=== PATIENT | male | born 2000 | race Caucasian/White ===

== ENCOUNTER 2023-11-04 15:00 | Emergency (ER) | payer SELFPAY ==
[2023-11-04 15:07] VITALS: BP 143/109; PULSE 99; TEMP 37.1; O2SAT 95; BMI 33.0
--- NOTE | 2023-11-04 15:22 | ECG_ITS ---
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
--- NOTE | 2023-11-04 15:24 | XR_ITS ---
[facility] [place] [id number] Patient Name: JANA LOVETT MRN: [id number] date: 2000 Sex: M Assigned Patient Location: ER Current Patient Location: ED.MAIN Accession/Order Number: [id number] Exam Date: 11/04/2023 15:35 Report Date: 11/04/2023 15:59 At the request of: MARCELLA MERCEDES Procedure: XR chest 1V 2 frontal AP portable upright CHEST RADIOGRAPH, 11/04/2023 3:35 PM EDT COMPARISON: None CLINICAL HISTORY: CP in the sternal area radiates posteriorly with vomiting for 2 weeks. FINDINGS: No acute cardiopulmonary disease. No pulmonary edema, pneumothorax, or pleural effusion. Normal heart size. No acute osseous abnormality. XR/XR chest 1V IMPRESSION: No acute abnormality identified. Electronically authenticated by: Judit LIU Date: 11/04/2023 15:59
--- NOTE | 2023-11-04 15:26 | ED_ITS ---
HPI - Chest Pain General Chief Complaint: Chest Pain Stated Complaint: CP W/ DEEP INSPIRATION Time Seen by Provider: 11/04/23 15:14 Source: patient Mode of arrival: walk-in Limitations: no limitations History of Present Illness HPI narrative: 23-year-old male presents to the emergency department for chest pain. It started about an hour ago when he was at work and he points to the sternal area and the corresponding area on his back. There was no injury and he states it is feeling better. He was at work when this happened and he was using a squeegee to move water. No fever or cough and he does not complain to me of shortness of breath. Related Data Allergies Allergy/AdvReac Type Severity Reaction Status Date / Time No Known Drug Allergies Allergy Verified 11/04/23 15:11 Review of Systems ROS Narrative A ten point review of systems is negative except as noted above. Exam Narrative Exam Narrative: Nurses note and vital signs reviewed and patient is not hypoxic. General: The patient appears well and in no apparent distress. Patient is resting comfortably on cart. Skin: Warm, dry, no pallor noted. There is no rash noted. Head: Normocephalic, atraumatic Eye: Normal conjunctiva, no drainage Ears, Nose, Mouth, and Throat: oral mucosa is moist. Nares patent. Cardiovascular: Regular Rate and Rhythm Respiratory: Patient is in no distress, no accessory muscle use, lungs are clear to auscultation, no wheezing, rales or rhonchi Back: non-tender GI: Soft and nontender Musculoskeletal: The patient has no evidence of calf tenderness, no pitting edema, symmetrical pulses noted bilaterally Neurological: A&O, normal speech Psychiatric: Cooperative Constitutional Vital Signs, click to edit/add: Last Vital Signs Temp 98.7 F 11/04/23 15:07 Pulse 99 H 11/04/23 15:07 Resp 18 11/04/23 15:07 BP 143/109 H 11/04/23 15:07 Pulse Ox 95 11/04/23 15:07 Course Vital Signs Vital signs: Vital Signs Temperature 98.7 F 11/04/23 15:07 Pulse Rate 99 H 11/04/23 15:07 Respiratory Rate 18 11/04/23 15:07 Blood Pressure 143/109 H 11/04/23 15:07 Pulse Oximetry 95 11/04/23 15:07 Temperature 98.7 F 11/04/23 15:07 Pulse Rate 99 H 11/04/23 15:07 Respiratory Rate 18 11/04/23 15:07 Blood Pressure 143/109 H 11/04/23 15:07 Pulse Oximetry 95 11/04/23 15:07 MDM - Chest Pain MDM Narrative Medical decision making narrative: His workup here is negative, including blood work, x-ray, and EKG. He is feeling much better and is able to be discharged home. Treatment diagnosis and follow-up were discussed with the patient. Differential Diagnosis Differential diagnosis: Likely pneumothorax, atypical chest pain, st elevation myocardial infarction, costochondritis and chest pain Lab Data Attestation: I reviewed the patient's lab results. Labs: Lab Results 11/04/23 Range/Units 15:14 WBC 14.6 H (4.0-11.0) 10^3/uL RBC 5.70 (4.70-6.10) 10^6/uL Hgb 16.0 (14.0-18.0) g/dL Hct 46.5 (42.0-54.0) % MCV 81.6 (80.0-94.0) fL MCH 28.1 (25.9-34.0) pg MCHC 34.4 (29.9-35.2) g/dL RDW 11.9 (11.0-15.0) % Plt Count 357 (150-450) 10^3/uL MPV 11.5 (9.5-13.5) fL Neut % (Auto) 67.5 (43.0-75.0) % Lymph % (Auto) 25.4 (20.5-60.0) % [place] % (Auto) 6.6 (1.7-12.0) % Eos % (Auto) 0.1 L (0.9-7.0) % Baso % (Auto) 0.1 L (0.2-2.0) % Neut # (Auto) 9.9 H (1.4-6.5) 10^3/uL Lymph # (Auto) 3.7 (1.2-3.8) 10^3/uL [place] # (Auto) 1.0 H (0.3-0.8) 10^3/uL Eos # (Auto) 0.0 (0.0-0.7) 10^3/uL Baso # (Auto) 0.0 (0.0-0.1) 10^3/uL Abs Immat Gran (auto) 0.04 H (0.00-0.03) 10^3/uL Imm/Tot Granulo (auto) 0.3 (0.0-0.5) % Sodium 140 (136-145) mmol/L Potassium 3.3 L (3.5-5.1) mmol/L Chloride 97 L (98-107) mmol/L Carbon Dioxide 28.1 (21.0-32.0) mmol/L Anion Gap 18.2 BUN 15.0 (7.0-18.0) mg/dL Creatinine 1.31 H (0.70-1.30) mg/dL Est GFR ( Amer) >60 (>=60) Est GFR (Non-Af Amer) >60 (>=60) BUN/Creatinine Ratio 11.5 Glucose 114 H (74-106) mg/dL Calcium 12.1 H (8.5-10.1) mg/dL Troponin I High Sens 4.4 (4.0-76.1) pg/mL Imaging Data Chest x-ray: Radiologist's impression: ITS Impressions Chest X-Ray 11/04/23 15:24 IMPRESSION: No acute abnormality identified. Electronically authenticated by: Judit LIU Date: 11/04/2023 15:59 ECG Data Attestation: I personally reviewed and interpreted this ECG as follows: (EKG on my interpretation shows normal sinus rhythm without acute change and rate of 88.) Heart Score History: Slightly/Non-Suspicious ECG: Normal Age: <45 years Risk Factors: No Risk Factors Troponin: <Normal Limit Total Heart Score Recommendations & Risks:: 0 Discharge Plan Discharge Stand Alone Forms: Portal Instructions Chief Complaint: Chest Pain Clinical Impression: Chest pain Patient Disposition: Home, Self-Care Time of Disposition Decision: 16:09 Condition: Good Mode of Transportation: Private Vehicle Print Language: Uzbek Instructions: Chest Pain (ED) Referrals: Physician,Non-Staff, MD [Primary Care Provider] - 1 week
[2023-11-04 15:42] LABS: Basophils Percent Auto 0.1 % (0.2-2.0); Eosinophils Percent Auto 0.1 % (0.9-7.0); Hematocrit 46.5 % (42.0-54.0); Immature Granulocytes Abs Auto 0.04 10^3/uL (0.00-0.03); Immature Granulocytes Pct Auto 0.3 % (0.0-0.5); Lymphocytes Absolute Auto 3.7 10^3/uL (1.2-3.8); Lymphocytes Percent Auto 25.4 % (20.5-60.0); Mean Corpuscular HGB Conc 34.4 g/dL (29.9-35.2); Mean Corpuscular Hemoglobin 28.1 pg (25.9-34.0); Mean Corpuscular Volume 81.6 fL (80.0-94.0); Mean Platelet Volume 11.5 fL (9.5-13.5); Monocytes Percent Auto 6.6 % (1.7-12.0); Neutrophils Absolute Auto 9.9 10^3/uL (1.4-6.5); Neutrophils Percent Auto 67.5 % (43.0-75.0); Platelet Count 357 10^3/uL (150-450); Red Cell Distribution Width 11.9 % (11.0-15.0); White Blood Count 14.6 10^3/uL (4.0-11.0)
[2023-11-04 15:46] LABS: Anion Gap 18.2; BUN Creatinine Ratio 11.5; Calcium 12.1 mg/dL (8.5-10.1); Carbon Dioxide 28.1 mmol/L (21.0-32.0); Chloride 97 mmol/L (98-107); Estimated GFR (African America >60 (>=60); Estimated GFR (Non-African Ame >60 (>=60); Glucose 114 mg/dL (74-106); Potassium 3.3 mmol/L (3.5-5.1); Sodium 140 mmol/L (136-145)
[2023-11-04 15:55] LABS: Troponin I High Sensitivity 4.4 pg/mL (4.0-76.1)
== END 2023-11-04 16:17 | disposition home or self-care (01) ==
PROVIDERS: Emergency Provider Emergency Medicine
DX: R07.9 Chest pain, unspecified (principal)
CPT/HCPCS: 36415; 71045; 80048; 84484; 85025; 93005; 99285

== ENCOUNTER 2023-11-28 13:43 | Emergency (ER) | payer OTHER, SELFPAY ==
[2023-11-28 14:14] VITALS: BP 143/99; PULSE 98; TEMP 37.6; O2SAT 97; BMI 34.3
--- NOTE | 2023-11-28 14:40 | ED.GENADUL1 ---
HPI HPI - General Adult General Chief complaint: Weakness Stated complaint: GENERAL WEAKNESS/ VOMITTING Time Seen by Provider: 11/28/23 14:17 Source: patient Mode of arrival: walk-in Limitations: no limitations History of Present Illness HPI narrative: 23-year-old male presents to the emergency department with complaint of vomiting. Had 2 episodes while at work today. Does work in a hot environment. Had nothing to eat all morning. States attempted to drink fluids, but is warm. First he woke around 1130. Started drinking more warm fluids, boss brought him cold Gatorade which she believes upset his stomach caused him to throw up again. His employer wanted him to come here to be evaluated. Patient states he has been tolerating fluids since the event. Patient adds that he lives in [facility], does not eat like he should. Reports he eats maybe once a day. Believes this has contributed to the events of this morning. Currently, patient is asymptomatic. Denies fever, chills, abdominal pain, diarrhea, prior abdominal problems Quality:?As above Severity:?Mild Timing:?As above, resolved Context: Normal setting and activity? Modifying factors:?None Associated symptoms: None Related Data Allergies Allergy/AdvReac Type Severity Reaction Status Date / Time No Known Drug Allergies Allergy Verified 11/28/23 14:14 Opioid HPI Opioid Management Most Recent Opioid Data: Last Pain Scale 2 11/28/23 14:22 Review of Systems ROS Constitutional Denies: fever, chills or fatigue Cardiovascular Denies: chest pain Gastrointestinal Reports: vomiting; Denies: abdominal pain, nausea or diarrhea Genitourinary Denies: decreased urine ouput Musculoskeletal Denies: joint pain Neurological Denies: headache or dizziness Endocrine Denies: fatigue Exam Constitutional Vital Signs, click to edit/add: Last Vital Signs Temp 99.7 F 11/28/23 14:14 Pulse 98 H 11/28/23 14:14 Resp 18 11/28/23 14:14 BP 143/99 H 11/28/23 14:14 Pulse Ox 97 11/28/23 14:14 O2 Del Method Room Air 11/28/23 14:14 Common normals: no apparent distress, oriented x3 and alert HENMT Common normals: normocephalic, head/scalp atraumatic and external nose normal Nose: external nose normal Respiratory Common normals: normal respiratory effort and clear to auscultation bilaterally Auscultation: clear to auscultation bilaterally Cardio Common normals: regular rate, regular rhythm and no murmurs Rate: regular rate Rhythm: regular rhythm GI Common normals: soft to palpation and non-tender Inspection: normal to inspection Palpation: soft Extremity Common normals: normal to inspection Neuro Common normals: oriented x3, no focal motor deficits, no sensory deficits noted and gait normal Sensorium/orientation: alert Psych Common normals: thought process normal, cooperative and affect normal Thought process: normal thought process Course Vital Signs Vital signs: Vital Signs Temperature 99.7 F 11/28/23 14:14 Pulse Rate 98 H 11/28/23 14:14 Respiratory Rate 18 11/28/23 14:14 Blood Pressure 143/99 H 11/28/23 14:14 Pulse Oximetry 97 11/28/23 14:14 Oxygen Delivery Method Room Air 11/28/23 14:14 Temperature 99.7 F 11/28/23 14:14 Pulse Rate 98 H 11/28/23 14:14 Respiratory Rate 18 11/28/23 14:14 Blood Pressure 143/99 H 11/28/23 14:14 Pulse Oximetry 97 11/28/23 14:14 Oxygen Delivery Method Room Air 11/28/23 14:14 Medical Decision Making MDM Narrative Medical decision making narrative: This is a pleasant 23-year-old male presenting to the emergency department with complaint of vomiting x 2 episodes while at work today. Works in a warm environment. On arrival, afebrile, vital signs are stable. On exam, nontoxic, well-appearing patient in no distress. Heart regular rate and rhythm. Lung sounds clear and equal bilaterally. Abdomen soft, nontender. Moist mucous membranes. Discussed, at length further evaluation, treatment options while in the emergency department. Patient states she has been tolerating liquids and does not feel like he needs IV fluids, further workup and evaluation. Patient requesting work note for today, as well as, name and phone number of primary provider he can get established with. Patient was advised he may return at any time for the workup, IV that he is declining at this time. Patient looks well, nontoxic, moist mucous membranes. He is ambulatory. Favor vomiting x 2 episodes related to hot environment Considered dehydration. Patient tolerating p.o. Encouraged to continue this. Considered heat exhaustion. Less likely as he has normal vital signs, does not appear ill Disposition ? The patient was discharged. Plan: Patient will be discharged to home. Condition at time of disposition: stable ? Advised to follow up with primary provider. Advised to return for any worsening and/or development of new, concerning signs or symptoms PLEASE NOTE: Portions of the medical record may have been produced using electronic decating machine operator and may contain errors with respect to translation of words which may not have been identified prior to finalization of the chart. Medical Records Medical records reviewed: Yes I reviewed the patient's medical records Discharge Plan Discharge Stand Alone Forms: Work/School Release, Portal Instructions Chief Complaint: Weakness Clinical Impression: Dehydration Vomiting Qualifiers: Vomiting type: unspecified Nausea presence: without nausea Qualified Code(s): R11.11 - Vomiting without nausea Patient Disposition: Home, Self-Care Time of Disposition Decision: 14:43 Condition: Good Mode of Transportation: Private Vehicle Print Language: Urdu Instructions: Acute Nausea and Vomiting (ED) Referrals: Jose Christie MD [Physician] - 1 week Discharge Date/Time: 11/28/23 15:08
== END 2023-11-28 15:08 | disposition home or self-care (01) ==
PROVIDERS: Emergency Provider Emergency Medicine
DX: E86.0 Dehydration (principal); R11.11 Vomiting without nausea
CPT/HCPCS: 99281

== ENCOUNTER 2023-12-02 04:48 | Emergency (ER) | payer OTHER, SELFPAY ==
[2023-12-02 04:53] VITALS: BP 162/96; PULSE 66; TEMP 36.6; O2SAT 99; BMI 34.3
--- NOTE | 2023-12-02 05:37 | ED_ITS ---
HPI - Abdominal Pain General Chief Complaint: Abdominal Pain Stated Complaint: ABD PAIN Time Seen by Provider: 12/02/23 05:31 Source: patient Mode of arrival: walk-in Limitations: no limitations History of Present Illness HPI narrative: abdominal pain. patient is here for a work note. States he believes he ate something yesterday that made him ill and he vomited. His job is requesting a work note. He is feeling better but did not want to go to work this AM. No fever. No diarrhea Related Data Home Medications ?Medication ?Instructions ?Recorded ?Confirmed No Known Home Medications 12/02/23 12/02/23 Allergies Allergy/AdvReac Type Severity Reaction Status Date / Time No Known Drug Allergies Allergy Verified 12/02/23 04:57 Review of Systems ROS Status of ROS 10 or more systems reviewed and unremark able except as noted in history and below Exam Constitutional Vital Signs, click to edit/add: Last Vital Signs Temp 97.9 F 12/02/23 04:53 Pulse 66 12/02/23 04:53 Resp 18 12/02/23 04:53 BP 162/96 H 12/02/23 04:53 Pulse Ox 99 12/02/23 04:53 O2 Del Method Room Air 12/02/23 04:53 Common normals: no apparent distress, average body habitus, oriented x3, no limitations, healthy appearing, alert and well nourished [facility] Common normals: normocephalic and head/scalp atraumatic Eye Common normals: EOMs intact bilaterally and conjunctivae normal Respiratory Common normals: normal respiratory effort, no retractions, no use of accessory muscles and clear to auscultation bilaterally Cardio Common normals: regular rate, regular rhythm, S1 normal heart sound and S2 normal heart sound GI Common normals: Normal to inspection, nondistended, normoactive bowel sounds present, soft to palpation and non-tender Extremity Common normals: normal to inspection and full ROM Neuro Common normals: oriented x3, CN's II-XII intact bilaterally, moves all extremities and no focal motor deficits Psych Appearance: grossly normal Course Vital Signs Vital signs: Vital Signs Temperature 97.9 F 12/02/23 04:53 Pulse Rate 66 12/02/23 04:53 Respiratory Rate 18 12/02/23 04:53 Blood Pressure 162/96 H 12/02/23 04:53 Pulse Oximetry 99 12/02/23 04:53 Oxygen Delivery Method Room Air 12/02/23 04:53 Temperature 97.9 F 12/02/23 04:53 Pulse Rate 66 12/02/23 04:53 Respiratory Rate 18 12/02/23 04:53 Blood Pressure 162/96 H 12/02/23 04:53 Pulse Oximetry 99 12/02/23 04:53 Oxygen Delivery Method Room Air 12/02/23 04:53 MDM - Abdominal Pain MDM Narrative Medical decision making narrative: patient presents for a work note. States he vomited at home . Believes from infected food. his Job is now requesting a work note. Exam neg. Note provided for today Discharge Plan Discharge Stand Alone Forms: Portal Instructions Chief Complaint: Abdominal Pain Clinical Impression: Vomiting Qualifiers: Vomiting type: unspecified Nausea presence: without nausea Qualified Code(s): R11.11 - Vomiting without nausea Patient Disposition: Home, Self-Care Mode of Transportation: Private Vehicle Prescriptions / Home Meds: No Action No Known Home Medications Print Language: Sinhala Instructions: Acute Nausea and Vomiting (ED) Referrals: Physician,Non-Staff, [Primary Care Provider] - 1 week Discharge Date/Time: 12/02/23 05:44
== END 2023-12-02 05:44 | disposition home or self-care (01) ==
PROVIDERS: Emergency Provider Internal Medicine
DX: R11.11 Vomiting without nausea (principal)
CPT/HCPCS: 99281